=== PATIENT | male | born 1970 | race Caucasian/White ===

== ENCOUNTER → 2022-10-07 06:00 | Outpatient (CLI) | payer OTHER ==
[~2022-10-07] VITALS: Ht 180.3 cm; Wt 122.5 kg
[~2022-10-07 06:00] MED LIST: COLACE100 MG PO; MEDROL4 MG PO; MEDROLPACK PO; PERCOCET 5-3251 EACH PO; PERCOCET 5/3251 TAB PO; SYNTHROID50 MCG PO; SYNTHROID75 MCG PO; ZOFRAN8 MG PO
== END | disposition home or self-care (01) ==
LOC: LAB 06:00 → SURH 10-18 07:00 → EDSTATUS 10-18 11:15 → SURH 10-18 11:15
PROVIDERS: ATTEND Orthopaedic Surgery Orthopaedic Surgery of the Spine
DX: Z01.810 Encounter for preprocedural cardiovascular examination (principal); M50.021 Cervical disc disorder at C4-C5 level with myelopathy

== ENCOUNTER 2022-11-11 11:15 | Inpatient (IN) | payer OTHER ==
[~2022-11-11] VITALS: Ht 180.3 cm; Wt 93.9 kg
[~2022-11-11 11:15] MED LIST changes: -COLACE100 MG PO; -MEDROLPACK PO; -PERCOCET 5-3251 EACH PO; -SYNTHROID75 MCG PO; -ZOFRAN8 MG PO
[2022-11-11] MEDS ORDERED: SYNTHROID75 MCG PO (14:20)
[2022-11-16] MEDS ORDERED: PERCOCET 5-3251 EACH PO (10:27)
[2022-11-16] MEDS ORDERED: COLACE100 MG PO ×2 (10:27→10:28)
[2022-11-16] MEDS ORDERED: MEDROLPACK PO (10:27)
[2022-11-16] MEDS ORDERED: ZOFRAN8 MG PO (10:28)
== END 2022-11-17 12:04 | disposition home or self-care (01) | DRG 518 ==
LOC: O/R 11-16 05:45 → SURH 11-16 11:00 → PED 11-16 13:59
PROVIDERS: ADMIT Orthopaedic Surgery Orthopaedic Surgery of the Spine; ATTEND Orthopaedic Surgery Orthopaedic Surgery of the Spine
PROC: 0RR30JZ Replacement of Cervical Vertebral Disc with Synthetic Substitute, Open Approach (ICD-10-PCS; principal; 2022-11-16 11:00)
DX: M50.021 Cervical disc disorder at C4-C5 level with myelopathy (principal); M47.12 Other spondylosis with myelopathy, cervical region; M48.02 Spinal stenosis, cervical region; E03.9 Hypothyroidism, unspecified